=== PATIENT | female | born 1975 | race Caucasian/White ===

== ENCOUNTER 2018-02-24 20:30 | Emergency (ER) | payer OTHER ==
[~2018-02-24] VITALS: Ht 162.6 cm; Wt 97.5 kg
[~2018-02-24 20:30] MED LIST: ALBU2.5V2 IH; GABA600T7 PO; TRAM50TA PO
[2018-02-24] MEDS ORDERED: AUGMENTIN 875-125 TABLET PO STA (20:53)
--- NOTE | 2018-02-24 20:57 | ER.PDOC ---
General Chief Complaint: Requesting Medical Care Stated Complaint: DOG BITE Time seen by MD: 20:50 Source: patient Exam Limitations: no limitations History of Present Illness Initial Comments Dog bite by own dog, unprovoked Onset: just prior to arrival Where: home Animal: dog Animal Appearance: appeared well Animal Immunizations: UTD Animal Disposition: Animal Known Context of Attack: "unprovoked" attack Severity of Injury: bitten Injury Location: upper extremity (hand, dorsum) Allergies: Coded Allergies: aspirin (Verified Allergy, Severe, RASH ITCHING, 07/01/15) codeine (Verified Allergy, Severe, RASH ITCHING, 07/01/15) hydrocodone (Verified Allergy, Severe, RASH ITCHING, 07/01/15) shellfish derived (Verified Allergy, Severe, RASH ITCHING WHELPS, BP ISSUES, 07/01/15) Uncoded Allergies: COCONUT (Allergy, Intermediate, RASH, 11/07/12) Home Meds Reported Medications Tramadol Hcl (TRAMADOL HCL) 50 Mg Tablet, 50 MG PO TID, TABLET 07/01/15 Gabapentin (GABAPENTIN) 600 Mg Tablet, 600 MG PO TID, TABLET 07/01/15 Past Medical History Surgical History: cholecystectomy, hysterectomy Review of Systems Skin: see HPI All Other Systems: Reviewed and Negative Physical Exam General Appearance: alert, no distress Skin: puncture (on dorsum of right hand) Neuro/Vascular/Tendon: no vascular compromise, sensation nml, oriented x3, nml ROM, CN's nml as tested Psych: mood/affect nml HEENT: atraumatic, PERRL, eye lids/conjun nml, ENT nml external inspect. Neck: uninjured, nml inspection Resp/CVS: chest non-tender, breath sounds nml, heart sounds nml, reg. rate & rhythm Abdomen: nml inspection, non-tender Back: nml inspection Extremities: nml inspection, no infection, ROM nml Departure Time of Disposition: 20:55 Disposition: 01 HOME, SELF-CARE Impression: Primary Impression: Dog bite Condition: Stable Referrals: FÉLIX OLSEN [employer] SUPERVISOR (PCP) PRIMARY CARE PROVIDER Duration or Time Spent with Pa: ROCKY COLIN MD Feb 24, 2018 20:57
[2018-02-24] MEDS ORDERED: TORADOL IM ONE (21:00)
[2018-02-24] MEDS ORDERED: WATER ONE (21:05)
[2018-02-24 21:06] VITALS: BP 156/67
[2018-02-24] MEDS ORDERED: AUGMENTIN 875-125 TABLET ONE (21:06)
[2018-02-24] MEDS ORDERED: TORADOL ONE (21:06)
[2018-02-24 21:56] VITALS: BP 156/67
== END 2018-02-24 21:54 | disposition home or self-care (01) ==
LOC: ER 20:30
DX: S61.451A Open bite of right hand, initial encounter (principal); Z88.5 Allergy status to narcotic agent; Z88.6 Allergy status to analgesic agent; Z91.013 Allergy to seafood; Z91.018 Allergy to other foods; Z90.49 Acquired absence of other specified parts of digestive tract; Z90.710 Acquired absence of both cervix and uterus; W54.0XXA Bitten by dog, initial encounter; Y93.89 Activity, other specified; Y92.098 Other place in other non-institutional residence as the place of occurrence of the external cause; Y99.8 Other external cause status
CPT/HCPCS: 96372; 99284; J1885